=== PATIENT | male | born 1950 | race Caucasian/White ===

== ENCOUNTER 2019-12-12 08:14 | Observation (INO) | payer MEDICARE, OTHER ==
[2019-12-12] MEDS ORDERED: IPRATROPIUM/ALBUTEROL 3 ML VIAL NEB ONE (08:51)
[2019-12-12] MEDS ORDERED: SODIUM CHLORIDE 0.9% 1000ML 1,000 ML IVS PRN (08:51)
[2019-12-12] MEDS ORDERED: ALBUTEROL SULFATE 2.5 MG/3 ML VIAL NEB ONE (08:51)
--- NOTE | 2019-12-12 09:38 | RAD ---
EXAM DESCRIPTION: Chest,2 Views CLINICAL HISTORY: fever and sob COMPARISON: July 23, 2018 FINDINGS: The cardiomediastinal silhouette is unremarkable. There is a consolidation in the right mid and upper lung likely involving a portion of the right upper lobe. No additional airspace consolidation, no pleural effusion. There is no pneumothorax or acute fracture. IMPRESSION: Pneumonia involving a portion of the right upper lobe. Follow-up chest radiograph after treatment is recommended to document complete resolution. Electronically signed by: Theodore Sy MD 12/12/2019 9:37 AM CDT
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
[2019-12-12] MEDS ORDERED: cefTRIAXone SODIUM 1 GM in SODIUM CHL 0.9% 50ML MIN-BAG+ 50 ML IVPB ONE (11:43)
[2019-12-12] MEDS ORDERED: AZITHROMYCIN IV 500 MG in SODIUM CHLORIDE 0.9% 250ML 250 ML IVPB ONE (11:44)
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
[2019-12-12] MEDS ORDERED: LEVALBUTEROL NEBS 1.25 MG/3 ML VIAL INH PRN (13:14)
[2019-12-12] MEDS ORDERED: SODIUM CHLORIDE 0.9% (FLUSH) 10 ML SYG IV PRN (13:14)
[2019-12-12] MEDS ORDERED: ONDANSETRON INJ 4 MG/2 ML VIAL IV PRN (13:14)
[2019-12-12] MEDS ORDERED: IV SET AND CAP CHANGE INJ INJ SCH (13:30)
[2019-12-12] MEDS: LEVALBUTEROL NEBS 1.25 MG/3 ML VIAL INH SCH (16:50)
[2019-12-12] MEDS ORDERED: PANTOPRAZOLE SODIUM IV 40 MG VIAL ONE (20:12)
[2019-12-12] MEDS: METOPROLOL TARTRATE 25 MG TAB PO SCH (20:23)
[2019-12-12] MEDS: CLINDAMYCIN HCL CAP 150 MG CAP PO SCH (20:25)
[2019-12-12] MEDS: PROPAFENONE 150 MG TAB PO SCH (20:26)
[2019-12-12] MEDS ORDERED: WARFARIN SODIUM 2 MG TAB ONE (20:28)
[2019-12-12] MEDS ORDERED: GABAPENTIN 300 MG CAP PO SCH (21:00)
[2019-12-12] MEDS ORDERED: WARFARIN SODIUM 2 MG TAB PO SCH (21:00)
[2019-12-12] MEDS: ACETAMINOPHEN 325 MG TAB PO PRN (22:00)
[2019-12-13] MEDS: LEVALBUTEROL NEBS 1.25 MG/3 ML VIAL INH SCH ×2 (00:25→08:50)
[2019-12-13] MEDS: PROPAFENONE 150 MG TAB PO SCH (05:32)
[2019-12-13] MEDS ORDERED: PANTOPRAZOLE SODIUM IV 40 MG VIAL IV SCH (06:30)
[2019-12-13] MEDS: ACETAMINOPHEN 325 MG TAB PO PRN (06:43)
[2019-12-13] MEDS ORDERED: SODIUM CHLORIDE 0.9% 250ML 250 ML ONE (06:55)
[2019-12-13] MEDS ORDERED: AZITHROMYCIN IV 500 MG VIAL IVPB ONE (06:55)
--- NOTE | 2019-12-13 07:31 | RAD ---
CHEST, TWO VIEW, XR CLINICAL HISTORY: Pneumonia COMPARISON: 12/12/2019 TECHNIQUE: Frontal and lateral Chest. FINDINGS: There are persistent hazy opacities within the right upper lobe which have not significant changed and accounting for differences in lung volumes. There are increasing lingula and left basilar opacities. No pneumothorax. No pleural fluid. Heart is normal in size. Normal cardiomediastinal contours. IMPRESSION: 1. Stable right upper lobe and slight worsening left basilar infiltrates. Electronically signed by: Jennifer Hancock DO 12/13/2019 7:30 AM CDT
[2019-12-13] MEDS: METOPROLOL TARTRATE 25 MG TAB PO SCH (08:28)
[2019-12-13] MEDS ORDERED: (Fluticasone Furoate-Vilanterol [Breo Ellipta 100-25 Mcg INH SCH (09:00)
[2019-12-13] MEDS ORDERED: NON-FORMULARY MEDICATION 1 EA MIS (Tadalafil [Tadalafil] 5 MG) PO SCH (09:00)
[2019-12-13] MEDS ORDERED: SALMETEROL XINAFOATE INH SCH (09:00)
[2019-12-13] MEDS ORDERED: AZITHROMYCIN IV 500 MG in SODIUM CHLORIDE 0.9% 250ML 250 ML IVPB SCH (09:00)
[2019-12-13] MEDS ORDERED: LEVOTHYROXINE SODIUM 0.075 MG TAB PO SCH (09:00)
[2019-12-13] MEDS ORDERED: WARFARIN SODIUM 4 MG PO SCH (09:00)
[2019-12-13 10:10] VITALS: BP 109/68; TEMP 98.4; O2SAT 98
[2019-12-13] MEDS: CLINDAMYCIN HCL CAP 150 MG CAP PO SCH (10:43)
[2019-12-13] MEDS ORDERED: cefTRIAXone SODIUM 1 GM in SODIUM CHL 0.9% 50ML MIN-BAG+ 50 ML IVPB SCH (11:00)
[2019-12-13] MEDS ORDERED: WARFARIN SODIUM 2 MG TAB PO SCH (12:00)
[2019-12-14] MEDS ORDERED: PANTOPRAZOLE SODIUM TAB 40 MG PO SCH (06:30)
[2019-12-14] MEDS ORDERED: LEVOTHYROXINE SODIUM 0.075 MG TAB PO SCH (06:30)
--- NOTE | 2019-12-18 08:42 | DS ---
SUPERVISING PHYSICIAN: Roshan Alexander MD ADMISSION DIAGNOSES: 1. Right upper lobe pneumonia, community acquired. 2. Chronic atrial fibrillation on Coumadin with controlled ventricular rate. 3. Hypertension. 4. Hypothyroidism. 5. Neuropathy. DISCHARGE DIAGNOSES: 1. Right upper lobe pneumonia, community acquired. 2. Group A pharyngitis on clindamycin and cefdinir. 3. Chronic atrial fibrillation on Coumadin with controlled ventricular rate. 5. Hypertension. 6. Hypothyroidism. 7. Neuropathy. REASON FOR HOSPITALIZATION: Mr. Cloud is a 69-year-old male with a history of atrial fibrillation on Coumadin, neuropathy, hypertension, hypothyroidism. He presents to the Emergency Room complaining of shortness of breath with associated cough, fever starting this morning. He denies any exposure to any known COVID patients. He has not been traveling. The patient just recently within the last 4 or 5 days has been started on clindamycin due to questionable infection of a rear molar with a cap on it awaiting a root canal. He actually denied any diarrhea since starting the clindamycin. Chest x-ray in the Emergency Room showed a pneumonia involving a portion of the right upper lobe. Laboratories showed white count 8,900 with a left shift. Blood gas analysis on 2 liters nasal cannula showed mild hypoxia with pO2 50, pCO2 and bicarb and pH were normal. Saturation was 92% on 2 liters nasal cannula. INR 2.28 and he does take Coumadin daily. Chemistries showed a mildly elevated BUN at 29 and bilirubin 1.4. Group A strep test was positive. Rapid COVID testing was negative. Given his symptomatology, mild hypoxia on room air and x-ray indicating right upper lobe pneumonia, the patient is going to be placed in observation for continuation of treatment and evaluation of right upper lobe. He was admitted in stable condition. LABORATORY STUDIES: White count on discharge 8,300, hemoglobin 15, hematocrit 45, platelet count 103,000. Differential showed to be with a slight left shift. Coagulation showed D-dimer of 2.22 on discharge. Blood gas analysis on admission showed pH of 7448, pO2 of 58 on room air with saturations of 92%, pCO2 37, bicarb 25.5. Chemistries on discharge shows normal electrolytes, BUN 21, creatinine 0.93. Liver functions were all within normal limits except for slightly elevated bilirubin of 1.4. Group A strep was positive. RADIOLOGY: Chest x-ray on discharge per radiologic interpretation showed stable right upper lobe and slight worsening left basilar infiltrates. EKG on admission showed a sinus tachycardia at 102, otherwise no ST or T-wave changes to indicate acute ischemia. HOSPITAL COURSE: Mr. Cloud was admitted for some mild hypoxia on room air associated with some pneumonia. He had had a tooth infection that was being treated by his dentist. He had been on clindamycin for 4 days and was put in overnight for close observation. He was found to be clinically stable to continue overnight. The patient was treated for community acquired pneumonia. He was treated with Rocephin and azithromycin as well as to continue on clindamycin in the hospital p.o. Again, he showed clinically to be improving and stable. Vital signs on discharge showed oxygen saturation of 98% on 2 liter nasal cannula. He was afebrile at 98.4. Pulse 67, blood pressure 109/68, respirations are 15. PLAN: Mr. Cloud is discharged on 12/13/19 with instructions to followup with his primary care physician and is to continue antibiotic treatments for underlying pneumonia. He was to resume his diet. Increase activities as tolerated. MEDICATIONS PRESCRIBED ON DISCHARGE: Cefdinir 300 mg twice a day, #20. All other medications prior to hospitalization were continued. CONDITION ON DISCHARGE: Stable and improving. DISPOSITION: Patient is discharged home. #[id number] [facility]
== END 2019-12-13 12:22 | disposition home or self-care (01) ==
LOC: ER 08:14 → MS 12:26
PROVIDERS: ADMIT Nurse Practitioner Family; ATTEND Nurse Practitioner Family
DX: J18.9 Pneumonia, unspecified organism (principal); J02.0 Streptococcal pharyngitis; R09.02 Hypoxemia; I48.20 Chronic atrial fibrillation, unspecified; I10 Essential (primary) hypertension; E03.9 Hypothyroidism, unspecified; G62.9 Polyneuropathy, unspecified; J44.9 Chronic obstructive pulmonary disease, unspecified; Z20.828 Contact with and (suspected) exposure to other viral communicable diseases; Z79.01 Long term (current) use of anticoagulants; Z79.891 Long term (current) use of opiate analgesic; Z79.899 Other long term (current) drug therapy; Z88.0 Allergy status to penicillin; Z86.711 Personal history of pulmonary embolism; Z85.820 Personal history of malignant melanoma of skin
CPT/HCPCS: 96366; 96367; 96365; 96375; 96376; J7611; J0696; J7030; J7050 ×3; J0456 ×2; J7620; J7614 ×3; 80048; 80053; 87880; 36415 ×3; 85025 ×2; 87070; 87040 ×2; 85730; 85610 ×2; 83605; 71046 ×2; 94640 ×4; 94760 ×4; 82803; 36600; 82805; 94664; 99285; 93005; G0378; 87502; 87635